=== PATIENT | female | born 1980 ===

== ENCOUNTER 2019-05-05 11:09 | Emergency (ER) | payer BC ==
--- NOTE | 2019-05-05 12:23 | UC ---
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 States cough goes away on weekend when not working, but returns when she is at work. Denies any further symptoms. Pleasant 38 yo female c/o progressively worse cough, min productive, x one month. Worsens during the week, improves during the weekend (when not at work) . No fever / chills. No h/a, vis / aud issues. No cp / sob / palpitations. Former tobacco, but quit > 10 yrs ago. No hemoptysis. Once cough starts, it's hard to stop. No GI / GI c/o's reported. No rash. Has an air filter in her office, but hasn't helped. - History of Current Complaint Chief Complaint: UCRespiratory Stated Complaint: COUGH Time Seen by Provider: 05/05/19 12:22 Hx Obtained From: Patient Hx Last Menstrual Period: 04/25/19 Pain Intensity: 0 - Allergy/Home Medications Allergies/Adverse Reactions: Allergies Allergy/AdvReac Type Severity Reaction Status Date / Time No Known Allergies Allergy Verified 05/05/19 11:31 PMH/Surg Hx/FS Hx/Imm Hx Previously Healthy: Yes - Surgical History Surgical History: Yes Surgery Procedure, Year, and Place: cardiac ablation - Family History Known Family History: Positive: Non-Contributory - Social History Alcohol Use: Occasionally Substance Use Type: None Smoking Status (MU): Never Smoked Tobacco Review of Systems All Other Systems Reviewed And Are Negative: Yes Constitutional: Positive: Other - see hpi Skin: Positive: Other - see hpi Eyes: Positive: Other - see hpi ENT: Positive: Other - see hpi Respiratory: Positive: Cough Cardiovascular: Positive: Other - see hpi Gastrointestinal: Positive: Other - see hpi Genitourinary: Positive: Other - see hpi Motor: Positive: Other - see hpi Neurovascular: Positive: Other - see hpi Musculoskeletal: Positive: Other: - see hpi Neurological: Positive: Negative Psychological: Positive: Negative Is Patient Immunocompromised?: No Physical Exam Triage Information Reviewed: Yes Appearance: Well-Appearing - sitting up, nad. But + dry cough., Well-Nourished Vital Signs: Initial Vital Signs Temp 98.8 F 05/05/19 11:32 Pulse 88 05/05/19 11:32 Resp 16 05/05/19 11:32 BP 135/84 05/05/19 11:32 Pulse Ox 100 05/05/19 11:32 Vital Signs Reviewed: Yes Eye Exam: Normal ENT: Positive: Pharyngeal erythema - post pharynx redness, c/w cough and / or post nasal drip, TM dull Neck: Positive: Supple, Nontender, Other: - small approx 0.5cm moveable ant cervical lymph node Respiratory Exam: Other - + dry cough, rhonchorus. BS equal. No rtx. Respiratory: Positive: No respiratory distress, No accessory muscle use Cardiovascular Exam: Normal Cardiovascular: Positive: RRR, No Murmur, Pulses Normal, Brisk Capillary Refill Abdominal Exam: Normal Abdomen Description: Positive: Nontender Musculoskeletal Exam: Normal - moves x 4 ext's gait ok Neurological Exam: Normal - grossly nonfocal Psychological Exam: Normal - conversing easily and appropriately Skin Exam: Normal - no visible or reported rash Course/Dx - Course Course Of Treatment: CXR reviewed report with pt. MONICO. Reviewed coa / tx plan. See avs. Questions as posed answered to the best of my ability. S/sx highly suggestive of irritant at the office. However, encourage f/u pcp, and resp modifications / tx as noted in avs. - Diagnoses Provider Diagnosis: Bronchitis Discharge - Sign-Out/Discharge Documenting (check all that apply): Patient Departure All imaging exams completed and their final reports reviewed: Yes - Discharge Plan Condition: Stable Disposition: HOME Prescriptions: Albuterol HFA INHALER* [Ventolin HFA Inhaler*] 1 - 2 puff INH Q4H PRN #1 mdi PRN Reason: Wheezing Azithromyxin DI (NF) [Z-Di (Zithromax) 250 mg tabs #6] 2 tab PO .TODAY, THEN 1 DAILY #6 tab Benzonatate CAP* [Tessalon 100 MG CAP*] 100 mg PO TID PRN #30 cap PRN Reason: Cough Patient Education Materials: Bronchospasm (ED) Referrals: Kalyn Feliz MD [Primary Care Provider] - Additional Instructions: Follow up with your primary care physician, Dr. Felix - call for follow up appointment next week. Humidified air at home (please replace your humdifier). HEPA filter for your work office if possible (where your cough is worse). Yogurt and / or probiotic daily. - Billing Disposition and Condition Condition: STABLE Disposition: Home
[2019-05-05 13:30] VITALS: BP 134/79
== END 2019-05-05 14:01 | disposition home or self-care (01) ==
LOC: UCCORT 11:09
DX: J40 Bronchitis, not specified as acute or chronic (principal)
CPT/HCPCS: 71046; 99212; G0463